=== PATIENT | male | born 1975 | race Two or more races ===

== ENCOUNTER 2021-07-16 12:36 | Emergency (ER) | payer OTHER ==
[~2021-07-16] VITALS: Ht 170.2 cm; Wt 95.7 kg
[2021-07-16] MEDS ORDERED: DICY20TA PO (19:51)
[2021-07-16] MEDS ORDERED: CIPRO500 MG PO (19:51)
[2021-07-16] MEDS ORDERED: PEPCID AC20 MG PO (19:51)
[2021-07-16] MEDS ORDERED: FLAGYL500MG PO (19:51)
== END 2021-07-16 20:46 | disposition home or self-care (01) ==
LOC: ER 12:36
DX: K52.89 Other specified noninfective gastroenteritis and colitis (principal); E86.0 Dehydration; Z20.822 Contact with and (suspected) exposure to COVID-19